=== PATIENT | female | born 1960 | race Caucasian/White ===

== ENCOUNTER 2018-10-02 12:14 | Inpatient (IN) ==
[2018-10-02] MEDS ORDERED: OPTIRAY 320 125ml IV PRN (12:25)
[2018-10-02] MEDS ORDERED: CLOPIDOGREL BISULFATE 300 MG TAB ONE (12:42)
[2018-10-02 12:49] LABS: Hematocrit (blood only) 42.3 % (37-47); Mean Corpuscular Hgb Conc 35.5 g/dL (32-36); Mean Corpuscular Volume 86.5 fL (80-100); Mean Platelet Volume 12.5 fL (7.4-10.4); Platelet Count 200 K/uL (130-400); RDW Coefficient of Variation 12.5 % (11.5-14.5); Red Blood Count 4.89 M/uL (4.2-5.4); White Blood Count 9.67 K/uL (4.8-10.8)
--- NOTE | 2018-10-02 12:49 | CT Scan Report ---
HEAD & NECK CTA HISTORY: Stroke symptoms. TECHNIQUE: Multiaxial CT images of the head were performed following the intravenous administration o f contrast to evaluate the major cerebral vessels. Multiaxial CT images of the neck were also perform ed following the intravenous administration of contrast to evaluate the major cervical vessels. Maxim um intensity projection images were also obtained. A dose lowering technique was utilized adhering to the principles of ALARA. COMPARISON: Head CT 10/02/2018. FINDINGS: The distal vertebral arteries, basilar artery, and intracranial internal carotid arteries show no significant stenosis or occlusion. Mild calcified plaque within the bilateral carotid siphons. Mild to moderate narrowing within the proximal superior division of the right MCA without occlusion or ane urysm. The bilateral ACAs, left MCA, and left BALLOON SANDER appear patent. Focal area of high-grade stenosis ve rsus occlusion within the proximal right BALLOON SANDER best seen on axial image 112. There is diminished perfus ion within the distal right BALLOON SANDER. The major dural venous sinuses appear patent. The aortic arch and proximal great vessels are widely patent. There is no significant stenosis, occ lusion, or dissection identified within the bilateral common carotid, internal carotid, or vertebral arteries. A 2 mm subpleural nodule in the left lung apex on image 50. This is likely benign. Minimal calcified plaque within the bilateral carotid bifurcations. IMPRESSION: 1. Mild to moderate narrowing within the proximal superior division of the right MCA without occlusio n. 2. Focal area of high-grade stenosis versus occlusion within the proximal right BALLOON SANDER. Follow-up brain MRI recommended to exclude the possibility of a right BALLOON SANDER territory infarct. 3. No significant stenosis, occlusion, or dissection identified within the carotid or vertebral arter ies. Electronically signed by: Hernan Sommers M.D. 10/02/2018 12:48 PM
--- NOTE | 2018-10-02 12:49 | CT Scan Report ---
HEAD & NECK CTA HISTORY: Stroke symptoms. TECHNIQUE: Multiaxial CT images of the head were performed following the intravenous administration o f contrast to evaluate the major cerebral vessels. Multiaxial CT images of the neck were also perform ed following the intravenous administration of contrast to evaluate the major cervical vessels. Maxim um intensity projection images were also obtained. A dose lowering technique was utilized adhering to the principles of ALARA. COMPARISON: Head CT 10/02/2018. FINDINGS: The distal vertebral arteries, basilar artery, and intracranial internal carotid arteries show no significant stenosis or occlusion. Mild calcified plaque within the bilateral carotid siphons. Mild to moderate narrowing within the proximal superior division of the right MCA without occlusion or ane urysm. The bilateral ACAs, left MCA, and left ELECTRIC SPOT WELDER appear patent. Focal area of high-grade stenosis ve rsus occlusion within the proximal right ELECTRIC SPOT WELDER best seen on axial image 112. There is diminished perfus ion within the distal right ELECTRIC SPOT WELDER. The major dural venous sinuses appear patent. The aortic arch and proximal great vessels are widely patent. There is no significant stenosis, occ lusion, or dissection identified within the bilateral common carotid, internal carotid, or vertebral arteries. A 2 mm subpleural nodule in the left lung apex on image 50. This is likely benign. Minimal calcified plaque within the bilateral carotid bifurcations. IMPRESSION: 1. Mild to moderate narrowing within the proximal superior division of the right MCA without occlusio n. 2. Focal area of high-grade stenosis versus occlusion within the proximal right ELECTRIC SPOT WELDER. Follow-up brain MRI recommended to exclude the possibility of a right ELECTRIC SPOT WELDER territory infarct. 3. No significant stenosis, occlusion, or dissection identified within the carotid or vertebral arter ies. Electronically signed by: Hernan Sommers M.D. 10/02/2018 12:48 PM
[2018-10-02 12:57] LABS: Appearance Urine Clear (Clear); Bacteria Urine Automated Negative (Negative); Bilirubin Urine Negative (Negative); Blood Urine Trace (Negative); Cast Urine Automated 0 /lpf (0-5); Color Urine Yellow; Glucose Urine UA 3+ (Negative); Ketones Urine 1+ (Negative); Leukocyte Esterase Urine Negative (Negative); Nitrite Urine Negative (Negative); Protein Urine Negative (Negative); RBC Urine Automated 0-4 /hpf (0-4); Specific Gravity Urine 1.031 (1.000-1.030); Urobilinogen Urine Negative (Negative); pH Urine 6.5 (4.5-7.5)
[2018-10-02 12:58] LABS: Estimated Average Glucose 341 mg/dl; Hemoglobin A1C 13.5 % (4.5-5.6)
[2018-10-02] MEDS ORDERED: SODIUM CHLORIDE 0.9% 1000ML 1,000 ML IV ONE ×2 (12:59→13:04)
[2018-10-02 13:00] LABS: Partial Thromboplastin Ratio 0.8; Partial Thromboplastin Time 22.5 Seconds (21.0-31.0); Prothrombin Time 9.8 Seconds (9.0-12.0)
--- NOTE | 2018-10-02 13:04 | CT Scan Report ---
CT head/brain wo con CLINICAL HISTORY: Stroke Symptoms COMPARISON STUDY: None TECHNIQUE: Axial CT of the brain is performed from the vertex to the skull base. IV contrast was not administered for this examination. A dose lowering technique was utilized adhering to the principles of ALARA. CT DOSE: FINDINGS: No intra or extra-axial mass lesions are visualized. There is no CT evidence of acute cortical infarc tion. There is no evidence of midline shift. There is no acute hemorrhage. No calvarial fractures ar e visualized. There are patchy white matter hypodensities likely on a small vessel basis. There is no evidence of pathologic ventricular dilatation. There is no evidence of acute sinusitis IMPRESSION: No acute intracranial findings Electronically signed by: Barney Moseley M.D. 10/02/2018 12:28 PM
[2018-10-02 13:15] LABS: iSTAT Blood Urea Nitrogen 35 mg/dl (7-18); iSTAT Carbon Dioxide 32 mEq/l (24-31); iSTAT Chloride 88 mEq/L (101-112); iSTAT Creatinine 0.9 mg/dl (0.6-1.3); iSTAT Glucose > 700 mg/dl (70-99); iSTAT Hematocrit 43 % (37-47); iSTAT Hemoglobin 14.6 g/dl (12.0-16.0); iSTAT Ionized Calcium 1.14 mmol/l (1.12-1.32); iSTAT Potassium 4.2 mEq/L (3.3-5.0); iSTAT Sodium 129 mEq/L (135-144)
[2018-10-02 13:15] LABS: Albumin Level 3.5 gm/dl (3.4-5.0); BUN Creatinine Ratio 22.7 (10-20); Bilirubin,Total 0.5 mg/dl (0.2-1); Calcium 9.7 mg/dl (8.5-10.1); Creatinine Clr Calc Pharmacy 46.8 ml/min; Est GFR (African American) 51.3; Est GFR (Non-African American) 44.3; Globulin 3.6 gm/dl (2.5-4.0); Magnesium 2.6 mg/dl (1.8-2.4); Potassium 4.1 mmol/L (3.5-5.1); Total Protein 7.1 gm/dl (6.4-8.2)
--- NOTE | 2018-10-02 13:30 | XRay Report ---
XR chest 1V portable CLINICAL HISTORY: 57 years-old Female presenting with cough, stroke symptoms. TECHNIQUE: Portable semiupright AP view of the chest was obtained. COMPARISON: None. FINDINGS: Cardiomediastinal silhouette normal. Mildly low lung volumes. No focal opacity. No large effusion or pneumothorax. Osseous structures normal. Cholecystectomy clips noted. IMPRESSION: 1. No acute cardiopulmonary disease. Electronically signed by: Walter Gonzales M.D. 10/02/2018 1:29 PM
[2018-10-02] MEDS ORDERED: SODIUM CHLORIDE 0.45 % 1,000 ML IV SCH (13:45)
[2018-10-02] MEDS ORDERED: INSULIN REGULAR 250 UNITS in SODIUM CHLORIDE 0.9% 247.5 ML IV SCH ×3 (13:45→18:30)
[2018-10-02] MEDS ORDERED: NovoLIN-R INSULIN PER UNIT CHARGE ONE (13:49)
[2018-10-02] MEDS ORDERED: AZITHROMYCIN 500 MG in DEXTROSE 5% 250 ML IV ONE (14:09)
[2018-10-02] MEDS ORDERED: cefTRIAXone SODIUM 1,000 MG in DEXTROSE 5% 50 ML IV STA (14:09)
[2018-10-02] MEDS ORDERED: DEXTROSE 50% 50 ML SYRINGE IV PRN ×2 (14:30→19:45)
[2018-10-02] MEDS ORDERED: CARBOHYDRATES FOR HYPOGLYCEMIA PO PRN ×2 (14:30→19:45)
[2018-10-02] MEDS ORDERED: GLUCOSE 40% GEL 15 GM TUBE PO PRN ×2 (14:30→19:45)
[2018-10-02] MEDS ORDERED: GLUCOSE 10 TABS/TUBE PO PRN ×2 (14:30→19:45)
[2018-10-02] MEDS ORDERED: GLUCAGON FOR INJ 1 MG VIAL IM PRN ×2 (14:30→19:45)
[2018-10-02] MEDS ORDERED: cefTRIAXone SODIUM 1000MG/50ML D5W ONE (14:34)
--- NOTE | 2018-10-02 15:37 | Emergency Department Note ---
Entered by Alisa Evans acting as a scribe for Danie Kohli DO History of Present Illness General Chief complaint: Stroke/CVA Symptoms Time Seen by Provider: 10/02/18 12:13 Source: patient and EMS Mode of arrival: EMS Limitations: no limitations History of Present Illness Provider complaint: stroke-like symptoms Onset (ago): hour(s) 3 Location: head Pain Consistency: + other (waxing and waning) Quality: + other (stroke-like) Associated symptoms: + denies other symptoms (numbness, vision issues), + seizure, + weakness and + other (slurred speech) The patient is a 57 year old female with a past medical history of hypertension who presents to the Emergency Room via EMS for an evaluation of waxing and waning stroke-like symptoms that began around 0930 today. EMS notes via medic command call that the patient has been experiencing left-sided weakness which resolves on its own but later returns. Per EMS, the patient works at a gas station and was acting baseline until 0930 when her coworkers noticed that the patient was acting drunk-like. EMS also reports that the patient did have an episode of seizure-like activity where she looked to the left and was twitching. EMS states that this episode lasted about 4 minutes. EMS also notes that she was stuttering and that she did have an episode of hypoxia. They also report that the patients blood sugar level was elevated en route but that she has not history of diabetes. EMS states that she is currently being treated with a Z-Mikey and prednisone for a URI. The patient notes that her symptoms onset shortly after taking these. She explains that she was feeling dizzy and had a slurred speech and reports that is all she remembers. She denies any similar episodes in the past. She denies any vision issues or numbness. She denies any tobacco use. The patients coworker reports that the patient did seem somewhat confused yesterday. Home Medications Home Medications Medication Instructions Recorded Confirmed Type allopurinol 100 mg PO DAILY 10/02/18 10/02/18 History azithromycin [Zithromax Z-Mikey] 0 mg PO DAILY 10/02/18 10/02/18 History furosemide 20 mg PO Q OTHER DAY 10/02/18 10/02/18 History iron 1 tab PO DAILY 10/02/18 10/02/18 History levothyroxine 50 mcg PO QAM 10/02/18 10/02/18 History magnesium 500 mg PO DAILY 10/02/18 10/02/18 History metoprolol tartrate 100 mg PO DAILY 10/02/18 10/02/18 History potassium chloride [Klor-Con M20] 4 tabs PO DAILY 10/02/18 10/02/18 History prednisone 0 mg PO .TAPER DOSE 10/02/18 10/02/18 History valsartan-hydrochlorothiazide 1 tab PO DAILY 10/02/18 10/02/18 History Allergies Allergy/AdvReac Type Severity Reaction Status Date / Time aspirin AdvReac Unknown Unverified 10/02/18 14:13 Past Med/Surg History Medical History Hypertension (Chronic) Social History Preferred Language: Faroese marital status: Current Living Situation: Spouse current occupational status: employed Feels Safe at Home: Yes Smoking Status: Never smoker Review of Systems See HPI for pertinent positives & negatives. and A total of 10 systems reviewed and were otherwise negative Physical Exam Vital Signs Vital Signs - 24 hr 10/02/18 12:14 10/02/18 12:46 10/02/18 12:51 Temperature 36.6 C Temperature Source Oral Sepsis Recent Fever Within 48 Hours No Sepsis New/Unexplained Change in Mental Status No Sepsis Action Taken by Nursing No Action Required Pulse Rate 101 H 108 H 101 H Pulse Rate [Apical] Pulse Rate from SpO2 Sensor 109 H 101 H Pulse Rhythm [Apical] Respiratory Rate 16 20 15 Respiratory Effort / Characteristics Respiratory Depth Normal Respiratory Pattern Blood Pressure 195/104 H 183/140 H Blood Pressure [Left Arm] Blood Pressure Mean 134 154 Blood Pressure Mean [Left Arm] Blood Pressure Position Sitting Blood Pressure Position [Left Arm] Pulse Oximetry 97 99 98 Oxygen Delivery Method Nasal Cannula Oxygen Flow Rate 2 10/02/18 13:00 10/02/18 13:01 10/02/18 13:09 Temperature Temperature Source Sepsis Recent Fever Within 48 Hours Sepsis New/Unexplained Change in Mental Status Sepsis Action Taken by Nursing Pulse Rate 104 H 102 H Pulse Rate [Apical] Pulse Rate from SpO2 Sensor 101 H 101 H Pulse Rhythm [Apical] Respiratory Rate 15 17 Respiratory Effort / Characteristics Respiratory Depth Respiratory Pattern Blood Pressure 185/128 H Blood Pressure [Left Arm] Blood Pressure Mean 147 Blood Pressure Mean [Left Arm] Blood Pressure Position Blood Pressure Position [Left Arm] Pulse Oximetry 96 100 88 L Oxygen Delivery Method Nasal Cannula Oxygen Flow Rate 2 10/02/18 13:10 10/02/18 13:17 10/02/18 13:20 Temperature Temperature Source Sepsis Recent Fever Within 48 Hours Sepsis New/Unexplained Change in Mental Status Sepsis Action Taken by Nursing Pulse Rate 104 H 93 H 92 H Pulse Rate [Apical] Pulse Rate from SpO2 Sensor 106 H 92 H 82 Pulse Rhythm [Apical] Respiratory Rate 27 H 16 17 Respiratory Effort / Characteristics Respiratory Depth Respiratory Pattern Blood Pressure 186/100 H Blood Pressure [Left Arm] Blood Pressure Mean 128 Blood Pressure Mean [Left Arm] Blood Pressure Position Blood Pressure Position [Left Arm] Pulse Oximetry 86 L 97 97 Oxygen Delivery Method Oxygen Flow Rate 10/02/18 13:30 10/02/18 13:47 10/02/18 14:00 Temperature Temperature Source Sepsis Recent Fever Within 48 Hours Sepsis New/Unexplained Change in Mental Status Sepsis Action Taken by Nursing Pulse Rate Pulse Rate [Apical] 69 92 H Pulse Rate from SpO2 Sensor Pulse Rhythm [Apical] Regular Regular Respiratory Rate 17 17 Respiratory Effort / Characteristics Non-Labored Non-Labored Respiratory Depth Normal Normal Respiratory Pattern Regular Blood Pressure Blood Pressure [Left Arm] 160/83 H 160/107 H Blood Pressure Mean Blood Pressure Mean [Left Arm] 108 124 Blood Pressure Position Blood Pressure Position [Left Arm] Lying Lying Pulse Oximetry 95 100 100 Oxygen Delivery Method Nasal Cannula Nasal Cannula Nasal Cannula Oxygen Flow Rate 2 2 2 10/02/18 14:15 Temperature Temperature Source Sepsis Recent Fever Within 48 Hours Sepsis New/Unexplained Change in Mental Status Sepsis Action Taken by Nursing Pulse Rate Pulse Rate [Apical] 90 Pulse Rate from SpO2 Sensor Pulse Rhythm [Apical] Respiratory Rate 13 Respiratory Effort / Characteristics Respiratory Depth Normal Respiratory Pattern Blood Pressure Blood Pressure [Left Arm] 164/83 H Blood Pressure Mean Blood Pressure Mean [Left Arm] 110 Blood Pressure Position Blood Pressure Position [Left Arm] Sitting Pulse Oximetry 99 Oxygen Delivery Method Nasal Cannula Oxygen Flow Rate 2 VITAL SIGNS: were reviewed as above. GENERAL:Non-toxic in appearance. SKIN: Warm dry and pink. HEAD: Normocephalic and atraumatic. OROPHARYNX: Is clear and moist NECK: Supple without lymphadenopathy or meningismus. LUNGS: clear. HEART: Regular rate and rhythm. ABDOMEN: Soft and nontender. EXTREMITIES: Warm and well perfused. NEUROLOGICALLY: Awake alert and oriented without focal deficit. Cranial nerves 2-12 are intact. There is no pronator drift. Cerebellar testing is within normal limits. There is no nystagmus. There is no facial droop. Speech is clear. Vision is grossly normal. MUSCULOSKELETAL: Good muscle tone. No evidence of trauma. Course 1228: Past medical records reviewed. The patient was evaluated in room B1. A complete history and physical examination was performed. 1229: I discussed the patient's case with Dr. Sanchez Hobbs [facility] Neurology. He will evaluate the patient via TeleStroke. 1237: Dr. Bradford [facility] Neurology is evaluating the patient via TeleStroke. 1312: I reviewed the patient's case with Dr. Sanchez Hobbs [facility] Neurology. He recommends giving the patient 1 gram of Keppra IV, 1 L of fluids and Plavix 300 PO. 1425: I reviewed the patient's case with Dr. Yaw Hobbs [facility] Hospitalist. He will evaluate the patient for further management. 1433: I updated the patient and she is agreeable with the treatment plan. Administered Medications Ioversol (Optiray 320 125ml) 121 ml IV ONCE PRN PRN Reason: Interaction Checking Stop: 10/06/18 12:24 Last Admin: 10/02/18 12:25 Dose: 121 ml Documented by: [id number] Discontinued Medications Ceftriaxone Sodium (Rocephin) Confirm Administered Dose 1,000 mg .ROUTE .STK-MED ONE Stop: 10/02/18 14:35 Last Admin: 10/02/18 14:37 Dose: 1,000 mg Documented by: [id number] Clopidogrel Bisulfate (Plavix) Confirm Administered Dose 300 mg .ROUTE .STK-MED ONE Stop: 10/02/18 12:43 Last Admin: 10/02/18 12:45 Dose: 300 mg Documented by: [id number] Sodium Chloride (Nss 1000ml) 1,000 mls @ 999 mls/hr IV .Q1H1M ONE Stop: 10/02/18 13:59 Last Admin: 10/02/18 13:11 Dose: 999 mls/hr Documented by: [id number] Sodium Chloride (Nss 1000ml) 1,000 mls @ 999 mls/hr IV .Q1H1M ONE Stop: 10/02/18 14:04 Last Admin: 10/02/18 13:46 Dose: 999 mls/hr Documented by: [id number] Levetiracetam 1,000 mg/ (Dextrose) 110 mls @ 440 mls/hr IV NOW STA Stop: 10/02/18 13:27 Last Infusion: 10/02/18 13:38 Dose: 0 mls/hr Documented by: [id number] Admin: 10/02/18 13:23 Dose: 440 mls/hr Documented by: [id number] Insulin Human Regular (Novolin R U-100 Per Unit) Confirm Administered Dose 20 units .ROUTE .STK-MED ONE Stop: 10/02/18 13:50 Last Admin: 10/02/18 13:51 Dose: 20 units Documented by: [id number] Cosigned by: [id number] Medical Decision Making Differential Diagnosis Differential Diagnosis includes but is not limited to ischemic Stroke, hem orrhagic stroke, bells palsy, mass, neoplasm, migraine headache, seizure, subarachnoid hemorrhage, TIA, and transient global amnesia. Medical Records Attestation: I reviewed the patient's medical records. Home Medications Current Medication List: was personally reviewed by me Laboratory Data Attestation: I reviewed the patient's lab results. Result diagrams: 10/02/18 12:28 10/02/18 12:28 Lab Results 10/02/18 10/02/18 10/02/18 Range/Units 12:28 12:28 12:28 WBC 9.67 (4.8-10.8) K/uL RBC 4.89 (4.2-5.4) M/uL Hgb 15.0 (12.0-16.0) g/dL POC Hgb (12.0-16.0) g/dl Hct 42.3 (37-47) % POC Hct (37-47) % MCV 86.5 (80-100) fL MCH 30.7 (25-34) pg MCHC 35.5 (32-36) g/dL RDW Std Deviation 40.0 (36.4-46.3) fL RDW Coeff of Peter 12.5 (11.5-14.5) % Plt Count 200 (130-400) K/uL MPV 12.5 H (7.4-10.4) fL PT 9.8 (9.0-12.0) Seconds INR 1.0 (0.9-1.1) APTT 22.5 (21.0-31.0) Seconds PTT Ratio 0.8 POC Sodium (135-144) mEq/L Sodium 128 L (136-145) mmol/L POC Potassium (3.3-5.0) mEq/L Potassium 4.1 (3.5-5.1) mmol/L POC Chloride (101-112) mEq/L Chloride 90 L (98-107) mmol/L Carbon Dioxide 29 (21-32) mmol/L POC Total CO2 (24-31) mEq/l Anion Gap 9.0 (3-11) POC Anion Gap (16-25) mmol/L POC BUN (7-18) mg/dl BUN 30 H (7-18) mg/dl Creatinine 1.33 H (0.6-1.2) mg/dl POC Creatinine (0.6-1.3) mg/dl Est Cr Clr Drug Dosing 46.8 ml/min Est GFR ( Amer) 51.3 Est GFR (Non-Af Amer) 44.3 BUN/Creatinine Ratio 22.7 H (10-20) Glucose 841 H* (70-99) mg/dl POC Glucose (70-99) POC Glucose (other) (70-99) mg/dl Estimat Average Glucose mg/dl Hemoglobin A1c (4.5-5.6) % Calcium 9.7 (8.5-10.1) mg/dl POC Ioniz Calcium Art (1.12-1.32) mmol/l Magnesium 2.6 H (1.8-2.4) mg/dl Total Bilirubin 0.5 (0.2-1) mg/dl AST 20 (15-37) U/L ALT 40 (12-78) U/L Alkaline Phosphatase 128 H (45-117) U/L Total Protein 7.1 (6.4-8.2) gm/dl Albumin 3.5 (3.4-5.0) gm/dl Globulin 3.6 (2.5-4.0) gm/dl Albumin/Globulin Ratio 1.0 (0.9-2) Urine Color Urine Appearance (Clear) Urine pH (4.5-7.5) Ur Specific [place] (1.000-1.030) Urine Protein (Negative) Urine Glucose (UA) (Negative) Urine Ketones (Negative) Urine Blood (Negative) Urine Nitrite (Negative) Urine Bilirubin (Negative) Urine Urobilinogen (Negative) Ur Leukocyte Esterase (Negative) Urine WBC (Auto) (0-5) /hpf Urine RBC (Auto) (0-4) /hpf U Hyaline Cast (Auto) (0-5) /lpf U Epithel Cells (Auto) (0-5) /lpf Urine Bacteria (Auto) (Negative) 10/02/18 10/02/18 10/02/18 Range/Units 12:30 12:37 12:45 WBC (4.8-10.8) K/uL RBC (4.2-5.4) M/uL Hgb (12.0-16.0) g/dL POC Hgb (12.0-16.0) g/dl Hct (37-47) % POC Hct (37-47) % MCV (80-100) fL MCH (25-34) pg MCHC (32-36) g/dL RDW Std Deviation (36.4-46.3) fL RDW Coeff of Peter (11.5-14.5) % Plt Count (130-400) K/uL MPV (7.4-10.4) fL PT (9.0-12.0) Seconds INR (0.9-1.1) APTT (21.0-31.0) Seconds PTT Ratio POC Sodium (135-144) mEq/L Sodium (136-145) mmol/L POC Potassium (3.3-5.0) mEq/L Potassium (3.5-5.1) mmol/L POC Chloride (101-112) mEq/L Chloride (98-107) mmol/L Carbon Dioxide (21-32) mmol/L POC Total CO2 (24-31) mEq/l Anion Gap (3-11) POC Anion Gap (16-25) mmol/L POC BUN (7-18) mg/dl BUN (7-18) mg/dl Creatinine (0.6-1.2) mg/dl POC Creatinine (0.6-1.3) mg/dl Est Cr Clr Drug Dosing ml/min Est GFR ( Amer) Est GFR (Non-Af Amer) BUN/Creatinine Ratio (10-20) Glucose (70-99) mg/dl POC Glucose > 600 H* (70-99) POC Glucose (other) (70-99) mg/dl Estimat Average Glucose 341 mg/dl Hemoglobin A1c 13.5 H (4.5-5.6) % Calcium (8.5-10.1) mg/dl POC Ioniz Calcium Art (1.12-1.32) mmol/l Magnesium (1.8-2.4) mg/dl Total Bilirubin (0.2-1) mg/dl AST (15-37) U/L ALT (12-78) U/L Alkaline Phosphatase (45-117) U/L Total Protein (6.4-8.2) gm/dl Albumin (3.4-5.0) gm/dl Globulin (2.5-4.0) gm/dl Albumin/Globulin Ratio (0.9-2) Urine Color Yellow Urine Appearance Clear (Clear) Urine pH 6.5 (4.5-7.5) Ur Specific [place] 1.031 H (1.000-1.030) Urine Protein Negative (Negative) Urine Glucose (UA) 3+ H (Negative) Urine Ketones 1+ H (Negative) Urine Blood Trace H (Negative) Urine Nitrite Negative (Negative) Urine Bilirubin Negative (Negative) Urine Urobilinogen Negative (Negative) Ur Leukocyte Esterase Negative (Negative) Urine WBC (Auto) 1-5 (0-5) /hpf Urine RBC (Auto) 0-4 (0-4) /hpf U Hyaline Cast (Auto) 0 (0-5) /lpf U Epithel Cells (Auto) 10-20 H (0-5) /lpf Urine Bacteria (Auto) Negative (Negative) 10/02/18 Range/Units 12:59 WBC (4.8-10.8) K/uL RBC (4.2-5.4) M/uL Hgb (12.0-16.0) g/dL POC Hgb 14.6 (12.0-16.0) g/dl Hct (37-47) % POC Hct 43 (37-47) % MCV (80-100) fL MCH (25-34) pg MCHC (32-36) g/dL RDW Std Deviation (36.4-46.3) fL RDW Coeff of Peter (11.5-14.5) % Plt Count (130-400) K/uL MPV (7.4-10.4) fL PT (9.0-12.0) Seconds INR (0.9-1.1) APTT (21.0-31.0) Seconds PTT Ratio POC Sodium 129 L (135-144) mEq/L Sodium (136-145) mmol/L POC Potassium 4.2 (3.3-5.0) mEq/L Potassium (3.5-5.1) mmol/L POC Chloride 88 L (101-112) mEq/L Chloride (98-107) mmol/L Carbon Dioxide (21-32) mmol/L POC Total CO2 32 H (24-31) mEq/l Anion Gap (3-11) POC Anion Gap 15.0 L (16-25) mmol/L POC BUN 35 H (7-18) mg/dl BUN (7-18) mg/dl Creatinine (0.6-1.2) mg/dl POC Creatinine 0.9 (0.6-1.3) mg/dl Est Cr Clr Drug Dosing ml/min Est GFR ( Amer) Est GFR (Non-Af Amer) BUN/Creatinine Ratio (10-20) Glucose (70-99) mg/dl POC Glucose (70-99) POC Glucose (other) > 700 H* (70-99) mg/dl Estimat Average Glucose mg/dl Hemoglobin A1c (4.5-5.6) % Calcium (8.5-10.1) mg/dl POC Ioniz Calcium Art 1.14 (1.12-1.32) mmol/l Magnesium (1.8-2.4) mg/dl Total Bilirubin (0.2-1) mg/dl AST (15-37) U/L ALT (12-78) U/L Alkaline Phosphatase (45-117) U/L Total Protein (6.4-8.2) gm/dl Albumin (3.4-5.0) gm/dl Globulin (2.5-4.0) gm/dl Albumin/Globulin Ratio (0.9-2) Urine Color Urine Appearance (Clear) Urine pH (4.5-7.5) Ur Specific [place] (1.000-1.030) Urine Protein (Negative) Urine Glucose (UA) (Negative) Urine Ketones (Negative) Urine Blood (Negative) Urine Nitrite (Negative) Urine Bilirubin (Negative) Urine Urobilinogen (Negative) Ur Leukocyte Esterase (Negative) Urine WBC (Auto) (0-5) /hpf Urine RBC (Auto) (0-4) /hpf U Hyaline Cast (Auto) (0-5) /lpf U Epithel Cells (Auto) (0-5) /lpf Urine Bacteria (Auto) (Negative) Imaging Data Radiologist's Impression: Radiology results as stated below per my review and the radiologist's interpretation: HEAD & NECK CTA HISTORY: Stroke symptoms. TECHNIQUE: Multiaxial CT images of the head were performed following the intravenous administration of contrast to evaluate the major cerebral vessels. Multiaxial CT images of the neck were also performed following the intravenous administration of contrast to evaluate the major cervical vessels. Maximum intensity projection images were also obtained. A dose lowering technique was utilized adhering to the principles of ALARA. COMPARISON: Head CT 10/02/2018. FINDINGS: The distal vertebral arteries, basilar artery, and intracranial internal carotid arteries show no significant stenosis or occlusion. Mild calcified plaque within the bilateral carotid siphons. Mild to moderate narrowing within the proximal superior division of the right MCA without occlusion or aneurysm. The bilateral ACAs, left MCA, and left [employer] MANAGEMENT EXECUTIVE appear patent. Focal area of high- grade stenosis versus occlusion within the proximal right [employer] MANAGEMENT EXECUTIVE best seen on axial image 112. There is diminished perfusion within the distal right [employer] MANAGEMENT EXECUTIVE. The major dural venous sinuses appear patent. The aortic arch and proximal great vessels are widely patent. There is no significant stenosis, occlusion, or dissection identified within the bilateral common carotid, internal carotid, or vertebral arteries. A 2 mm subpleural nodule in the left lung apex on image 50. This is likely benign. Minimal calcified plaque within the bilateral carotid bifurcations. IMPRESSION: 1. Mild to moderate narrowing within the proximal superior division of the right MCA without occlusion. 2. Focal area of high-grade stenosis versus occlusion within the proximal right [employer]IES MANAGEMENT EXECUTIVE. Follow-up brain MRI recommended to exclude the possibility of a right FACILITIES MANAGEMENT EXECUTIVE territory infarct. 3. No significant stenosis, occlusion, or dissection identified within the carotid or vertebral arteries. Electronically signed by: Hernan Sommers M.D. 10/02/2018 12:[address] head/brain wo con CLINICAL HISTORY: Stroke Symptoms COMPARISON STUDY: None TECHNIQUE: Axial CT of the brain is performed from the vertex to the skull base. IV contrast was not administered for this examination. A dose lowering technique was utilized adhering to the principles of ALARA. CT DOSE: FINDINGS: No intra or extra-axial mass lesions are visualized. There is no CT evidence of acute cortical infarction. There is no evidence of midline shift. There is no acute hemorrhage. No calvarial fractures are visualized. There are patchy white matter hypodensities likely on a small vessel basis. There is no evidence of pathologic ventricular dilatation. There is no evidence of acute sinusitis IMPRESSION: No acute intracranial findings Electronically signed by: Barney Moseley M.D. 10/02/2018 12:28 PM XR chest 1V portable CLINICAL HISTORY: 57 years-old Female presenting with cough, stroke symptoms. TECHNIQUE: Portable semiupright AP view of the chest was obtained. COMPARISON: None. FINDINGS: Cardiomediastinal silhouette normal. Mildly low lung volumes. No focal opacity. No large effusion or pneumothorax. Osseous structures normal. Cholecystectomy clips noted. IMPRESSION: 1. No acute cardiopulmonary disease. Electronically signed by: Walter Gonzales M.D. 10/02/2018 1:29 PM ECG Data Indication: other (stroke-like symptoms) Rate (beats per minute): 98 Rhythm: normal sinus Findings: no ST elevation and no ectopy Blood Pressure Blood Pressure Findings: Elevated blood pressure Blood Pressure Disposition: further management by hospitalist MDM Narrative The patient presents as above. She was evaluated here by myself and by [facility]ist on line. The patient received the above medications. She will be admitted for the below diagnosis. Impression & Plan CVA (cerebrovascular accident), Hyperglycemia, Acute bronchitis, Seizure Critical Care Time I have personally spent 35 minutes of critical care time in the direct management of this patient. This includes bedside care, interpretation of diagnostic studies, and testing, discussion with consultants, patient, and family members, and other required patient management activities. These 35 minutes is in excess of all separately billable procedures. Critical Care Time: Yes Total Critical Care Time: 35 Discharge Plan Visit Data Chief Complaint: Stroke/CVA Symptoms ED Provider: Danie Kohli Discharge Problem: CVA (cerebrovascular accident), Hyperglycemia, Acute bronchitis, Seizure Patient Disposition: Being Evaluated by Hospitalist Forms Stand Alone Forms: My [facility] Prescriptions Prescriptions: No Action metoprolol tartrate 100 mg Tablet 100 mg PO DAILY RF: 0 valsartan-hydrochlorothiazide 160-12.5 mg Tablet 1 tab PO DAILY RF: 0 allopurinol 100 mg Tablet 100 mg PO DAILY RF: 0 potassium chloride [Klor-Con M20] 20 mEq Tablet,Er Particles/Crystals 4 tabs PO DAILY RF: 0 levothyroxine 50 mcg Tablet 50 mcg PO QAM RF: 0 magnesium 250 mg Tablet 500 mg PO DAILY RF: 0 furosemide 20 mg Tablet 20 mg PO Q OTHER DAY RF: 0 iron 1 tab PO DAILY RF: 0 azithromycin [Zithromax Z-Mikey] 250 mg Tablet PO DAILY RF: 0 prednisone 20 mg Tablet PO .TAPER DOSE RF: 0 Referrals Referrals: Luz Maria Mabry MD [Primary Care Provider] - Discharge Problem: CVA (cerebrovascular accident) Qualifiers: CVA mechanism: unspecified Qualified Code(s): I63.9 - Cerebral infarction, unspecified Acute bronchitis Qualifiers: Bronchitis organism: unspecified organism Qualified Code(s): J20.9 - Acute bronchitis, unspecified The scribe's documentation has been prepared under my direction and personally reviewed by me in its entirety. I confirm that the note above accurately refle cts all work, treatment, procedures, and medical decision making performed by me.
--- NOTE | 2018-10-02 15:39 | History & Physical Report ---
Date of Service October 02, 2018 Assessment & Plan (1) Uncontrolled type 2 diabetes mellitus: Glucose greater than 800 on admission. She is receiving intravenous fluids and insulin infusion. Serial lab studies ordered. Pseudohyponatremia should resolve with correction of hyperglycemia. Hemoglobin A1c is greater than 13. She will need diabetic instruction later on during this hospital stay Present on Admission?: Yes (2) Seizure: Some question of focal motor seizure. She has been loaded with Keppra and will start oral Keppra tomorrow. Neurological consultation is requested Present on Admission?: Yes (3) Acute bronchitis: Continue intravenous Rocephin and nebulizer treatments. Obtain sputum culture if sputum is produced Present on Admission?: Yes (4) CVA (cerebrovascular accident): Tele-neurology has evaluated the patient. Brain MRI scan is pending. She has been loaded with Plavix. Stroke protocol ordered Present on Admission?: Yes (5) Hypertension: Diuretics are on hold. Continue valsartan and metoprolol (6) DVT prophylaxis: Lovenox subcu History of Present Illness Chief Complaint: Nonproductive cough, altered mental status Primary Care Provider: Luz Maria Mabry MD 57-year-old female recently treated with azithromycin and prednisone for a bronchitis episode. She had altered mental status today at work and was sent to the ED for evaluation. She was found to have glucose greater than 800 but no overt DKA. She has pseudohyponatremia as expected. Tele-neurology evaluated the patient and she was given Plavix. She was also loaded with intravenous Keppra for possible new onset seizure that may have been focal. Head CT scan is unremarkable. Head CTA however reveals right posterior cerebral artery stenosis or occlusion. Brain MRI is pending. Neurology has been consulted. She is now on an insulin infusion. She has received Rocephin also in the ED. Diuretics have been discontinued. She was loaded with Plavix. She is admitted for further evaluation and treatment Allergies Allergy/AdvReac Type Severity Reaction Status Date / Time aspirin AdvReac Unknown Unverified 10/02/18 14:13 Home Medications Home Medications Medication Instructions Recorded Confirmed Type allopurinol 100 mg PO DAILY 10/02/18 10/02/18 History azithromycin [Zithromax Z-Mikey] 0 mg PO DAILY 10/02/18 10/02/18 History furosemide 20 mg PO Q OTHER DAY 10/02/18 10/02/18 History iron 1 tab PO DAILY 10/02/18 10/02/18 History levothyroxine 50 mcg PO QAM 10/02/18 10/02/18 History magnesium 500 mg PO DAILY 10/02/18 10/02/18 History metoprolol tartrate 100 mg PO DAILY 10/02/18 10/02/18 History potassium chloride [Klor-Con M20] 4 tabs PO DAILY 10/02/18 10/02/18 History prednisone 0 mg PO .TAPER DOSE 10/02/18 10/02/18 History valsartan-hydrochlorothiazide 1 tab PO DAILY 10/02/18 10/02/18 History Past Med/Surg History Medical History Hypertension (Chronic) Social History Preferred Language: Slovak marital status: Current Living Situation: Spouse current occupational status: employed Feels Safe at Home: Yes Smoking Status: Never smoker Review of Systems Review of Systems: All systems reviewed & are unremarkable except as noted in HPI & below Constitutional: + fatigue and + weakness; no fever Ear, Nose, Mouth, Throat: + dry mouth Respiratory: + cough; no dyspnea and no hemoptysis Physical Exam Constitutional: + obese Slightly lethargic but able to speak and appears to be oriented Eyes: PERRL, conjunctivae normal, anicteric sclerae ENMT: external ear and nose normal, oropharynx normal Mouth: + oral mucosal abnormality Dry mouth Neck: trachea midline, no thyromegaly Respiratory: normal respiratory effort; no respiratory distress, no labored breathing and no retractions Midline rhonchi. Cardiovascular: RRR, no murmur, no edema Gastrointestinal (Abdomen): normal bowel sounds, soft, nontender, no hepatosplenomegaly Musculoskeletal: no cyanosis or clubbing, extremities motor strength 5/5 Skin: no rashes, warm and dry Neurologic: CN's II-XI intact bilaterally and moves all extremities; no focal motor deficits Slightly lethargic but otherwise intact Results & Data Vital Signs (Past 12 Hours) Vital Signs Temp Pulse Pulse Resp BP BP Pulse Ox 10/02/18 14:45 90 17 127/84 99 10/02/18 14:30 76 16 154/88 H 99 10/02/18 14:15 90 13 164/83 H 99 10/02/18 14:00 92 H 17 160/107 H 100 10/02/18 13:47 100 10/02/18 13:30 69 17 160/83 H 95 10/02/18 13:20 92 H 17 97 10/02/18 13:17 93 H 16 186/100 H 97 10/02/18 13:10 104 H 27 H 86 L 10/02/18 13:09 88 L 10/02/18 13:01 102 H 17 185/128 H 100 10/02/18 13:00 104 H 15 96 10/02/18 12:51 101 H 15 98 10/02/18 12:46 108 H 20 183/140 H 99 10/02/18 12:14 36.6 C 101 H 16 195/104 H 97 Laboratory Results 10/02/18 12:28 10/02/18 12:28 (1) Acute bronchitis Bronchitis organism: unspecified organism Qualified Code(s): J20.9 - Acute bronchitis, unspecified (2) CVA (cerebrovascular accident) CVA mechanism: unspecified Qualified Code(s): I63.9 - Cerebral infarction, unspecified
[2018-10-02 16:51] LABS: BUN Creatinine Ratio 19.7 (10-20); Creatinine Clr Calc Pharmacy 46.9 ml/min; Est GFR (African American) 58.7; Est GFR (Non-African American) 50.6; Magnesium 2.3 mg/dl (1.8-2.4); Phosphorus 2.4 mg/dl (2.5-4.9); Potassium 3.7 mmol/L (3.5-5.1)
[2018-10-02 17:08] LABS: Beta-Hydroxybutyrate 1.48 mg/dl (0.2-2.81)
[2018-10-02] MEDS ORDERED: ACETAMINOPHEN 325 MG TAB PO PRN (17:28)
[2018-10-02] MEDS ORDERED: ALUMINUM/MAGNESIUM SUSP 30 ML UDC PO PRN (17:28)
[2018-10-02] MEDS ORDERED: ONDANSETRON INJ 2 MG/ML 2 ML VIAL IV PRN (17:28)
[2018-10-02] MEDS ORDERED: PHARMACIST DISCHARGE MED REC CONSULT PRN (17:28)
[2018-10-02] MEDS ORDERED: INSULIN ASPART 100 UNITS/ML 3 ML PEN SC SCH ×2 (18:00)
[2018-10-02] MEDS: ENOXAPARIN INJ 40 MG/0.4 ML SYR SQ SCH (18:22)
[2018-10-02] MEDS: INSULIN ASPART 100 UNITS/ML 3 ML PEN SC SCH ×2 (18:36→20:23)
[2018-10-02] MEDS: ALBUT/IPRATROP 3MG/0.5MG NEB 3 ML VIAL NEB SCH ×3 (19:11→22:14)
[2018-10-02] MEDS: NSS + 20MEQ KCL 20 MEQ/1,000 ML BAG IV SCH (19:16)
[2018-10-02] MEDS: POTASSIUM CHLORIDE 20 MEQ TABCR PO SCH (20:24)
[2018-10-02] MEDS ORDERED: INSULIN GLARGINE SOLOSTAR 100 UNITS/ML 3 ML PEN SC ONE ×3 (21:00)
[2018-10-02 21:04] LABS: Calcium 8.5 mg/dl (8.5-10.1); Creatinine Clr Calc Pharmacy 66.5 ml/min; Est GFR (African American) 89.4; Est GFR (Non-African American) 77.2; Phosphorus 1.7 mg/dl (2.5-4.9); Potassium 3.4 mmol/L (3.5-5.1)
[2018-10-02 21:17] LABS: Beta-Hydroxybutyrate 25.92 mg/dl (0.2-2.81)
[2018-10-02] MEDS ORDERED: GADOBUTROL 65ML VIAL IV PRN (22:07)
--- NOTE | 2018-10-02 22:18 | Magnetic Resonance Report ---
MR brain wo/w con CLINICAL HISTORY: Altered mental status, possible CVA COMPARISON STUDY: No previous studies for comparison. TECHNIQUE: Utilizing a 1.5 Mireya magnet and dedicated coil, multiplanar, multiecho imaging of the br ain was performed pre and postcontrast administration. IV administration of 7 mL of Gadavist contras t was uneventful. FINDINGS: Feeding images demonstrate several small foci of increased signal within the periventricula r regions. This suggestive of small embolic infarcts. There is a small linear focus of increased signal on diffusion involving the left central mike. This is also seen on the T2 images suggesting a subacute process. The ventricular system is midline. There is no evidence for abnormal postcontrast enhancement. IMPRESSION: 1. Small punctate infarcts of the right and to a lesser extent left cerebral distributions. 2. Subacute infarct left central mike. 3. Multiplicity of small punctate findings suggest possibility of small embolic foci of acute ischemi c change. 4. No abnormal postcontrast enhancement. The above report was generated using voice recognition software. It may contain grammatical, syntax or spelling errors. Electronically signed by: Bhargav Moya M.D. 10/02/2018 10:17 PM
[2018-10-03 00:29] LABS: BUN Creatinine Ratio 22.8 (10-20); Calcium 8.4 mg/dl (8.5-10.1); Creatinine Clr Calc Pharmacy 63.4 ml/min; Est GFR (African American) 85.1; Est GFR (Non-African American) 73.4; Potassium 3.7 mmol/L (3.5-5.1)
[2018-10-03 00:39] LABS: Phosphorus 1.5 mg/dl (2.5-4.9)
[2018-10-03] MEDS: NSS + 20MEQ KCL 20 MEQ/1,000 ML BAG IV SCH (00:48)
[2018-10-03] MEDS: POT PHOSPHATE MONOBASIC W/ SOD TAB PO SCH ×3 (03:15→13:55)
[2018-10-03 04:37] LABS: Basophils # (auto) 0.01 K/uL (0-0.2); Basophils % (auto) 0.1 %; Hematocrit (blood only) 35.4 % (37-47); Hemoglobin 12.4 g/dL (12.0-16.0); Immature Granulocytes # (auto) 0.03 K/uL (0.00-0.02); Immature Granulocytes % (auto) 0.3 %; Lymphocytes # (auto) 2.44 K/uL (1.2-3.4); Mean Corpuscular Volume 85.5 fL (80-100); Mean Platelet Volume 11.8 fL (7.4-10.4); Monocytes # (auto) 0.63 K/uL (0.11-0.59); Monocytes % (auto) 5.7 %; Neutrophils # (auto) 7.96 K/uL (1.4-6.5); Neutrophils % (auto) 71.9 %; Platelet Count 211 K/uL (130-400); RDW Coefficient of Variation 12.4 % (11.5-14.5); Red Blood Count 4.14 M/uL (4.2-5.4); White Blood Count 11.07 K/uL (4.8-10.8)
[2018-10-03 04:43] LABS: BUN Creatinine Ratio 26.8 (10-20); Calcium 8.2 mg/dl (8.5-10.1); Creatinine Clr Calc Pharmacy 74.5 ml/min; Est GFR (African American) 103.5; Est GFR (Non-African American) 89.3; Magnesium 2.2 mg/dl (1.8-2.4); Phosphorus 1.3 mg/dl (2.5-4.9); Potassium 3.6 mmol/L (3.5-5.1)
[2018-10-03] MEDS ORDERED: GLUCOSE 10 TABS/TUBE PO PRN (04:51)
[2018-10-03] MEDS ORDERED: CARBOHYDRATES FOR HYPOGLYCEMIA PO PRN (04:51)
[2018-10-03] MEDS ORDERED: GLUCAGON FOR INJ 1 MG VIAL SQ PRN (04:51)
[2018-10-03] MEDS ORDERED: GLUCOSE 40% GEL 15 GM TUBE PO PRN (04:51)
[2018-10-03] MEDS ORDERED: DEXTROSE 50% 50 ML SYRINGE IV PRN (04:51)
--- NOTE | 2018-10-03 04:56 | Progress Note ---
Date of Service October 03, 2018 Updates that occurred during [facility]: - Phosphorus level was 1.3. K 3.6. Ordered K-Phos 2 tabs p.o. QID with first dose given around 3 AM. - Her nurse was concerned that the patient's lung sounds were concerning for beginning of fluid overload. Still breathing comfortably though. SpO2 92% on RA. Her IV fluids were running at 175 mL an hour. Most recent lab check was notable for no current anion gap, potassium 3.6, pH of 7.45, and blood sugar of 129. Stopped her IV fluids. Started insulin sliding scale. - Morning labs still pending. Jagdeep Matthews, PGY2 Overnight call Results & Data Vital Signs (Past 12 Hours) Vital Signs Temp Pulse Pulse Resp BP BP Pulse Ox 10/03/18 04:00 36.7 C 76 18 115/71 92 10/02/18 23:25 85 10/02/18 23:10 36.8 C 84 19 105/65 93 10/02/18 19:15 72 16 93 10/02/18 19:13 37.1 C 73 18 124/74 92 10/02/18 17:44 67 10/02/18 17:32 36.7 C 72 18 129/54 L 95 10/02/18 17:10 67 17 121/69 95
[2018-10-03] MEDS: LEVOTHYROXINE SODIUM 50 MCG TABLET PO SCH (05:46)
[2018-10-03 06:05] LABS: Estimated Average Glucose 346 mg/dl; Hemoglobin A1C 13.7 % (4.5-5.6)
[2018-10-03 06:58] LABS: BUN Creatinine Ratio 30.5 (10-20); Creatinine Clr Calc Pharmacy 93.7 ml/min; Est GFR (African American) 115.2; Est GFR (Non-African American) 99.4; Phosphorus 1.9 mg/dl (2.5-4.9); Potassium 3.4 mmol/L (3.5-5.1)
[2018-10-03] MEDS: ALBUT/IPRATROP 3MG/0.5MG NEB 3 ML VIAL NEB SCH ×4 (07:05→19:24)
[2018-10-03] MEDS: CLOPIDOGREL BISULFATE 75 MG TAB PO SCH (08:08)
[2018-10-03] MEDS: VALSARTAN 80 MG TAB PO SCH (08:08)
[2018-10-03] MEDS: ALLOPURINOL 100 MG TAB PO SCH (08:09)
[2018-10-03] MEDS: MAGNESIUM OXIDE 400 MG TAB PO SCH (08:09)
[2018-10-03] MEDS: METOPROLOL TARTRATE 100 MG TAB PO SCH (08:09)
[2018-10-03] MEDS: POTASSIUM CHLORIDE 20 MEQ TABCR PO SCH (08:09)
[2018-10-03] MEDS: INSULIN ASPART 100 UNITS/ML 3 ML PEN SC SCH ×4 (08:11→20:54)
[2018-10-03] MEDS ORDERED: PHARMACY GLYCEMIC MGMT CONSULT PRN (08:16)
[2018-10-03] MEDS ORDERED: POT PHOSPHATE MONOBASIC W/ SOD TAB PO SCH (09:00)
[2018-10-03] MEDS ORDERED: INSULIN GLARGINE SOLOSTAR 100 UNITS/ML 3 ML PEN SC SCH (09:00)
[2018-10-03] MEDS ORDERED: NON-FORMULARY MEDICATION (Iron 1 TAB) PO SCH (09:00)
[2018-10-03] MEDS ORDERED: levETIRAcetam 500 MG TAB PO SCH (09:00)
[2018-10-03] MEDS ORDERED: cefTRIAXone SODIUM 1,000 MG in DEXTROSE 5% 50 ML IV SCH (10:00)
[2018-10-03 10:58] LABS: BUN Creatinine Ratio 26.3 (10-20); Creatinine Clr Calc Pharmacy 79.5 ml/min; Est GFR (African American) 105.2; Est GFR (Non-African American) 90.8; Potassium 3.7 mmol/L (3.5-5.1)
[2018-10-03 11:01] LABS: Phosphorus 2.7 mg/dl (2.5-4.9)
--- NOTE | 2018-10-03 11:15 | Neurology Consultation ---
Date of Consultation October 03, 2018 Assessment & Plan (1) Encephalopathy acute: Patient had acute confusion/encephalopathy prior to admission with poor balance and slurred speech Clinically she is doing very well with market improvements in all of these areas. She still has a little residual slowness and confusion but has no focal neurologic findings on exam or meningeal signs. She is afebrile. The etiology of the encephalopathy is likely related to significant hyperglycemia (glucose 141) as well as significant hypertension. She may have had some seizure activity/seizures explaining some of her mental status changes as well. MRI does not show obvious stroke except perhaps in the deep right frontal white matter in a tiny spot. The other changes on MRI are either old or not related to vascular events. Recent steroid use likely exacerbated the glucose and blood pressure. Mental status may take 48-72 hours to completely return back to normal following correction of her glucose and blood pressure (2) Seizure: Patient may have had some seizure activity but she certainly has been stable overnight. Severe hyperglycemia could trigger seizures. She has been given levetiracetam 500 mg each morning. (3) CVA (cerebrovascular accident): The patient does not have any evidence of stroke on exam. There is an equivocal upgoing toe on the right but there is considerable withdrawal. This would not correlate with any of her MRI findings otherwise. Severe Hyperglycemia and acute Hypertension can imitate focal neurologic deficits (such as creating an upgoing toe). She was put on clopidogrel. I do not believe she has had embolic phenomenon to the brain as I have reviewed this MRI with Dr. Hernández and we do not believe she has had multiple infarcts. Nevertheless, we are awaiting the echocardiogram results. (4) Hypertension: Patient has a longstanding history of hypertension which was quite elevated on admission. Today is much better. Recommendations: 1. Continue clopidogrel 75 mg daily. Apparently she cannot tolerate plain aspirin. There is no indication for anticoagulation at this time 2. Awaiting echocardiogram results. 3. Increase activity as able with physical, occupational, and speech therapy 4. Control blood pressure as you are doing aiming for a mean arterial pressure of 95-100. 5. Control glucose as you are doing, keeping less than 130 if possible. 6. Discontinue all steroid usage. 7. Discontinue levetiracetam. Now that her glucose is controlled she will not need an anticonvulsant. Overall, I spent a total of 110 minutes on this case including review of records, review of MRI films, direct evaluation the patient at bedside, and discussion of the case with the patient, clinical staff, Dr. Hernández in Radiology, and Dr. Voss including differential diagnosis and treatment options. History of Present Illness Reason for Consultation: Patient is a 58-year-old, was asked to see the request of Dr. Tidwell, for neurologic consultation regarding acute confusion and probable stroke Requesting Physician: Dr. Tidwell Attending Physician: Alvin Voss MD History of Present Illness Patient has a history of hypertension from for at least 10 years. She has no history of diabetes, heart disease, or stroke. The patient was doing well until last week when she started developing sinus infection issues and upper respiratory tract infection. On September 29, she went to urgent care and received a Z-Mikey and prednisone tapering course. She was diagnosed with an upper respiratory tract infection. She initiated both of those medications on September 30. On October 01 she was at work all day but colleagues reported that she was not acting herself and she has felt like she was in outer space On October 02 she went to work as usual and her was called by her supervisor soldering around 0930 to come get the patient because she was not acting right. She was slurring her words and her balance was poor, acting drunk. She had no alcohol. She was slow with her speech and action as well. She arrived to the emergency room October 02 at 1214 with a temperature of 36.6, pulse 101, blood pressure 195/104, and O2 saturation 97%. She had some confusion but was awake and alert and answering questions well. She had no focal signs on examination. There was a questionable left facial yuliana op noted. CBC was unremarkable. Sodium was 128 and glucose was 141. Magnesium was 2.6 and alk-phos 118. There is a mildly elevated BUN and creatinine. There was protein in her urine. CT scan of the head was unremarkable. CT angiography of the neck was unremarkable. CT angiography of the head showed a narrowing of the right proximal middle cerebral artery and high-grade stenosis of the right posterior cerebral artery. MRI of the brain reported multiple tiny white matter spots on diffusion imaging seemingly small embolic strokes including the left mike. I have reviewed this film with the radiologist and we are not certain that there are any active strokes except possibly 1 deep posterior right frontal spot. The rest seem older. The pontine lesion is not acute and does not represent an old stroke. It may be secondary to metabolic issues. She certainly has some small vessel ischemia. The patient has had no seizures overnight and no further issues. This morning her glucose was 138 and blood pressure 128/77. She has no complaints of pain or headache. She has fatigue and little dizzy with certain position changes but otherwise feels quite good. Her , was present in the room, feels she is a little slow and confused yet. Allergies Allergy/AdvReac Type Severity Reaction Status Date / Time aspirin AdvReac Unknown Unverified 10/02/18 14:13 Home Medications Home Medications Medication Instructions Recorded Confirmed Type allopurinol 100 mg PO DAILY 10/02/18 10/02/18 History azithromycin [Zithromax Z-Mikey] 0 mg PO DAILY 10/02/18 10/02/18 History furosemide 20 mg PO Q OTHER DAY 10/02/18 10/02/18 History iron 1 tab PO DAILY 10/02/18 10/02/18 History levothyroxine 50 mcg PO QAM 10/02/18 10/02/18 History magnesium 500 mg PO DAILY 10/02/18 10/02/18 History metoprolol tartrate 100 mg PO DAILY 10/02/18 10/02/18 History potassium chloride [Klor-Con M20] 4 tabs PO DAILY 10/02/18 10/02/18 History prednisone 0 mg PO .TAPER DOSE 10/02/18 10/02/18 History valsartan-hydrochlorothiazide 1 tab PO DAILY 10/02/18 10/02/18 History Patient History Medical History DVT prophylaxis Uncontrolled type 2 diabetes mellitus (Acute) CVA (cerebrovascular accident) (Acute) Acute bronchitis (Acute) Seizure (Acute) Hypertension (Chronic) H/O: hysterectomy Surgical History History of 2 sections S/P laparoscopic cholecystectomy Family History Mother , age 50 with an MRI Myocardial infarction Father , Her biologic father when she was 4 months old from some type of tumor. No problems noted. Social History Preferred Language: Ecuadorean Communication Ability: Effective Beliefs That Will Affect Care: None marital status: Current Living Situation: Spouse current occupational status: employed current occupation: Patient works at [email or web address] Other Information That Helps Us Care for You: No Feels Safe at Home: Yes Safety Concerns: Feels Safe At This Time Smoking Status: Former smoker Age Quit Using Tobacco: 19 Years Smoked: 2 Hx Alcohol Use: Yes Alcohol Intake Frequency Comment: She only rarely has a drink of alcohol perhaps once per month. Hx Substance Use: No Review of Systems Constitutional: + fatigue; no fever Eyes: no diplopia, no eye pain and no worsening vision Ear, Nose, Mouth, Throat: no ear pain, no tinnitus, no hearing loss and no dysphagia Respiratory: no cough and no dyspnea Cardiovascular: no chest pain, no dyspnea and no palpitations Gastrointestinal: no abdominal pain, no nausea and no vomiting Genitourinary: no dysuria, no urinary frequency and no urinary incontinence Musculoskeletal: no back pain, no neck pain, no radicular pain, no myalgia, no muscle weakness and no muscle atrophy Integumentary: no rash and no lesions Neurologic: + confusion; no gait abnormality, no falls, no localized weakness, no generalized weakness, no tingling, no numbness, no tremor(s), no abnormal movements, no dizziness, no headache(s), no abnormal speech, no behavioral changes and no memory loss Psychiatric: no depression, no abnormal sleep pattern, no anxiety, no difficulty concentrating, no confusion and no hallucinations Endocrine: + fatigue; no flushing Hematologic / Lymphatic: no easy bleeding and no easy bruising Allergy / Immunological: no urticaria Physical Exam Physical Exam: The patient is right-handed. The patient is awake, alert, and attentive. Speech is without any obvious aphasia but she does have some subtle dysarthria (very mild). Mentation and thought processes are very good with conversation, with full orientation and normal fund of knowledge. Attention and concentration are normal. Mood and affect are normal and appropriate. General appearance and grooming are normal. She has some memory deficits particularly with recent events but otherwise is fairly good snf. She is a little bit slow to respond both verbally and reacting physically. The discs are sharp with positive venous pulsations bilaterally. There are no exudates, hemorrhages, or blood vessel changes seen. Pupils are 4 mm bilaterally and reactive to light. Extraocular eye muscles are intact without nystagmus. Visual acuity and visual rios seem normal grossly to confrontation. There are no deficits to sensation in the face in all 3 distributions of the fifth cranial nerve bilaterally. Corneal reflexes are positive bilaterally. Facial strength and symmetry was normal bilaterally. Hearing seems intact grossly to voice and finger rub bilaterally. Palate moves well without asymmetry. There is normal sternocleidomastoid and trapezius (shoulder shrug) strength bilaterally. Tongue is midline with good strength bilaterally. Neck has a full range of motion without discomfort. There are no cervical bruits bilaterally. There are no cranial or ocular bruits. Heart is without murmur. There is a regular rhythm and rate. Cervical, thoracic, and lumbar spine are nontender to palpation. Gait is narrow based and her stance is stable eyes open or closed. With outstretched arms there is no drift. There are no resting, postural, or action tremors. There is no ataxia with finger to nose testing. There is good facility in the hands. No other abnormal involuntary movements are noted. Motor strength is 5/5 diffusely in the arms bilaterally including deltoids, biceps, triceps, brachioradialis, wrist flexors and extensors, robotics technician, and intrinsic hand muscles. Motor strength is 5/5 diffusely in the legs bilaterally including hip flexors, quadriceps, hamstrings, gastrocnemius, tibialis anterior, tibialis posterior, and Peroneii muscles bilaterally. Toe extensors are normal and there is good bulk in the extensor digitorum brevis muscles bilaterally. The limbs have good tone without rigidity or spasticity. There is no atrophy noted in the muscles. Muscle bulk is normal, there is no tenderness to palpation, no myotonia to percussion, and no fasciculations seen. Sensory examination is intact to touch and pin throughout all 4 limbs diffusely. Vibratory and position sense testing is normal bilaterally as well. There is normal sensation to temperature. Reflexes are 2/4 in the biceps, triceps, brachioradialis, quadriceps, and Achilles tendons bilaterally. Toes are downgoing with plantar stimulation on the right and equivocal to upgoing on the left. She has considerable withdrawal bilaterally. Peripheral pulses are present and of normal quality distally in all 4 limbs. There is no peripheral edema noted in the limbs. Results & Data Vital Signs (Past 12 Hours) Vital Signs Temp Pulse Pulse Resp BP Pulse Ox 10/03/18 07:22 36.5 C 90 18 128/77 90 10/03/18 07:06 36.6 C 74 18 124/69 92 10/03/18 06:18 68 05/15/19 04:00 36.7 C 76 18 115/71 92 10/02/18 23:25 85 10/02/18 23:10 36.8 C 84 19 105/65 93 Diagnostic Findings [place], [place] [phone] Magnetic Resonance Report Patient: Jan REICH Date: 10/02/18 MR#: [id number]: [address] Acct ID:[id number]: [facility] Zip[facility] [place] [address] Age: 57Location: 2S Sex: F Room/Bed: [facility] Att Phy: Carlos Tidwell MDDiagnosis: AMS Sheeba Phy: Luz Maria Mabry MDService Date: 10/02/18 Fam Phy: Interpreting Phy: Bhargav Moya MD Admit Phy: Carlos Tidwell MD Ordering Phy: Carlos Tidwell MD cc: ~ MR brain wo/w con CLINICAL HISTORY: Altered mental status, possible CVA COMPARISON STUDY: No previous studies for comparison. TECHNIQUE: Utilizing a 1.5 Mireya magnet and dedicated coil, multiplanar, multiecho imaging of the brain was performed pre and postcontrast administration. IV administration of 7 mL of Gadavist contrast was uneventful. FINDINGS: Feeding images demonstrate several small foci of increased signal within the periventricular regions. This suggestive of small embolic infarcts. There is a small linear focus of increased signal on diffusion involving the left central mike. This is also seen on the T2 images suggesting a subacute process. The ventricular system is midline. There is no evidence for abnormal postcontrast enhancement. IMPRESSION: 1. Small punctate infarcts of the right and to a lesser extent left cerebral distributions. 2. Subacute infarct left central mike. 3. Multiplicity of small punctate findings suggest possibility of small embolic foci of acute ischemic change. 4. No abnormal postcontrast enhancement. The above report was generated using voice recognition software. It may contain grammatical, syntax or spelling errors. Electronically signed by: Bhargav Moya M.D. 10/02/2018 10:17 PM (1) CVA (cerebrovascular accident) CVA mechanism: unspecified Qualified Code(s): I63.9 - Cerebral infarction, unspecified
[2018-10-03] MEDS ORDERED: INSULIN GLARGINE SOLOSTAR 100 UNITS/ML 3 ML PEN SC ONE ×2 (12:45→21:00)
--- NOTE | 2018-10-03 12:49 | Pharmacy Report ---
Glycemic Control Consultation - Date of Service October 03, 2018 - Scope Scope: Glycemic Pharmacist consulted by Dr Tidwell on 10/02/18 for glycemic control and to write orders per [facility] inpatient glycemic control protocol - Objective Weight: 81.7 kg Accuchecks BSG (last 24hrs): 10/02/18 10/02/18 10/02/18 12:28 12:30 12:59 Glucose 841 H* POC Glucose > 600 H* POC Glucose (other) > 700 H* 10/02/18 10/02/18 10/02/18 14:53 15:57 16:14 Glucose 371 H* POC Glucose > 600 H* 476 H* POC Glucose (other) 10/02/18 10/02/18 10/02/18 17:06 18:02 19:19 Glucose POC Glucose 408 H* 396 H* 391 H* POC Glucose (other) 10/02/18 10/02/18 10/02/18 20:06 20:23 21:02 Glucose 392 H* POC Glucose 426 H* 382 H* POC Glucose (other) 10/02/18 10/02/18 10/03/18 22:04 23:05 00:02 Glucose 270 H POC Glucose 338 H* 326 H* POC Glucose (other) 10/03/18 10/03/18 10/03/18 00:14 01:06 01:47 Glucose 187 H POC Glucose 261 H 225 H POC Glucose (other) 10/03/18 10/03/18 10/03/18 01:53 03:04 03:23 Glucose POC Glucose 185 H 135 H 127 H POC Glucose (other) 10/03/18 10/03/18 10/03/18 03:36 03:54 04:12 Glucose POC Glucose 119 H 115 H 129 H POC Glucose (other) 10/03/18 10/03/18 10/03/18 06:02 07:19 10:28 Glucose 138 H 280 H POC Glucose 166 H POC Glucose (other) 10/03/18 11:34 Glucose POC Glucose 281 H POC Glucose (other) Laboratory Data (last 24hrs): 10/02/18 10/02/18 10/02/18 12:28 16:14 20:23 Potassium 4.1 3.7 3.4 L Carbon Dioxide 29 30 26 Anion Gap 9.0 8.0 10.0 Creatinine 1.33 H 1.19 0.84 D Est Cr Clr Drug Dosing 46.8 46.9 66.5 Beta-Hydroxybutyric Acd 1.48 25.92 H 10/03/18 10/03/18 10/03/18 00:02 01:47 06:02 Potassium 3.7 3.6 3.4 L Carbon Dioxide 28 30 27 Anion Gap 5.0 4.0 5.0 Creatinine 0.87 0.74 0.62 Est Cr Clr Drug Dosing 63.4 74.5 93.7 Beta-Hydroxybutyric Acd 10/03/18 10:28 Potassium 3.7 Carbon Dioxide 28 Anion Gap 5.0 Creatinine 0.73 Est Cr Clr Drug Dosing 79.5 Beta-Hydroxybutyric Acd HbA1c: 13.7 % (4.5-5.6) H 10/02/18 18:43 - Recent Pertinent Medications Outpatient Anti-diabetic Regimen: * None * A1c = 13.5 % 10/02/18 Risk Factors for Insulin Resistance: * Steroids: Prednisone 60mg PO SAMPLE SUPERVISOR on 10/02 * Infection: Rocephin 1g IV daily * IVF: NS+20K on hold * Diet: Type 1 DM - Assessment & Plan Assessment & Plan: ASSESSMENT: * 58 year old female admitted for acute encephalopathy and hyperglycemia, A1c 13.5% - pt not on any anti DM medications as outpatient * Patient initiated on insulin drip yesterday, and transitioned to basal bolus last night * Patient had Lantus 18 units x1 last night, then 15 units this morning, will give additional dose now at lunch for elevated BSG * Neurology would like patient's blood sugar goal to be 130mg/dl * Will also tighten CF and CR at this time for elevation in blood sugar from breakfast to lunch, 166mg/dl --> 280mg/dl PLAN FOR INPATIENT GLYCEMIC CONTROL: * Basal insulin * Lantus 10 units SQ x1 dose now then * Lantus 7 units tonight for BSG > 140mg/dl * Then Lantus 30 units SQ Daily starting tomorrow * Bolus insulin * NovoLog per scale ACHS or Q6hrs while NPO * Goal Range: Low 110 mg/dL - High 140 mg/dL * Correction Factor: 20 mg/dL/unit * Nutritional / Prandial insulin per carb ratio of 1 unit per 7 grams CHO consumed * Please note that the plan above was derived based on current level of insulin resistance and hospital stress. These recommendations are appropriate for inpatient admission only. Plan of care upon discharge will need to be reassessed to avoid potential outpatient hypo/hyperglycemia. Thank you.
--- NOTE | 2018-10-03 13:01 | Hospitalist Progress Note ---
Date of Service October 03, 2018 Assessment & Plan (1) Uncontrolled type 2 diabetes mellitus: Glucose greater than 800 on admission. DM type II with nonketotic hyperglycemic-hyperosmolar State (NKHHS). A1c was 13.7%. - Initially she received intravenous fluids and insulin infusion. - Glycemic consult helping manage blood sugars - Glycemic instructor (2) CVA (cerebrovascular accident): Brain MRI on 10/02 showed multiple punctate lesions. Initially concerning for embolic event; however, on re-read it was felt it was mostly old, microvascular lesions with one possible mild infarct. - Continue Plavix per neurology - Held ASA as she has not tolerated it in the past - Follow up echo for possible embolic cause (3) Seizure: Some question of focal motor seizure. Seen by neurology who felt this could potentially be due to her hyperglycemia. - She was loaded with Keppra and started oral Keppra; however, this was stopped on 10/03 per neurology. - Monitor (4) Acute bronchitis: Likely tipping point of her hyperglycemia was steroid administration. Initially on ceftriaxone. - Ceftriaxone switched on 10/03 to doxycycline - Continue nebulizer treatments. - Obtain sputum culture if sputum is produced (5) Hypertension: BP presently 135/75. - Diuretics are on hold. - Continue valsartan and metoprolol. (6) DVT prophylaxis: Lovenox Subjective Feels better this morning. Still with nasal congestion, but otherwise mostly feels well. Review of Systems Review of Systems: All systems reviewed & are unremarkable except as noted in HPI & below Constitutional: + fatigue and + weakness; no fever Ear, Nose, Mouth, Throat: + dry mouth Respiratory: + cough; no dyspnea and no hemoptysis Physical Exam Constitutional: + obese Eyes: PERRL, conjunctivae normal, anicteric sclerae ENMT: external ear and nose normal, oropharynx normal Mouth: + oral mucosal abnormality Neck: trachea midline, no thyromegaly Respiratory: normal respiratory effort; no respiratory distress, no labored breathing and no retractions Cardiovascular: RRR, no murmur, no edema Gastrointestinal (Abdomen): normal bowel sounds, soft, nontender, no hepatosplenomegaly Musculoskeletal: no cyanosis or clubbing, extremities motor strength 5/5 Skin: no rashes, warm and dry Neurologic: CN's II-XI intact bilaterally and moves all extremities; no focal motor deficits Results & Data Vital Signs (Past 12 Hours) Vital Signs Temp Pulse Pulse Resp BP Pulse Ox 10/03/18 11:51 36.4 C L 79 18 133/74 96 10/03/18 11:18 82 18 91 10/03/18 07:22 36.5 C 90 18 128/77 90 10/03/18 07:06 36.6 C 74 18 124/69 92 10/03/18 06:18 68 10/03/18 04:00 36.7 C 76 18 115/71 92 (1) Acute bronchitis Bronchitis organism: unspecified organism Qualified Code(s): J20.9 - Acute bronchitis, unspecified (2) CVA (cerebrovascular accident) CVA mechanism: unspecified Qualified Code(s): I63.9 - Cerebral infarction, unspecified
[2018-10-03] MEDS: SODIUM CHLORIDE 0.65% NA SOLN 45 ML (OCEAN) SCH ×3 (14:12→20:50)
[2018-10-03] MEDS: ENOXAPARIN INJ 40 MG/0.4 ML SYR SQ SCH (18:18)
[2018-10-03] MEDS: DOXYCYCLINE HYCLATE 100 MG CAP PO SCH (18:19)
[2018-10-03] MEDS: FLUTICASONE PROPIONATE NA SPR 16 GM BTL SCH (20:50)
[2018-10-04] MEDS: SODIUM CHLORIDE 0.65% NA SOLN 45 ML (OCEAN) SCH ×4 (03:16→12:17)
[2018-10-04] MEDS: DOXYCYCLINE HYCLATE 100 MG CAP PO SCH (05:22)
[2018-10-04] MEDS: LEVOTHYROXINE SODIUM 50 MCG TABLET PO SCH (05:22)
[2018-10-04 06:36] LABS: Basophils # (auto) 0.01 K/uL (0-0.2); Basophils % (auto) 0.1 %; Eosinophils # (auto) 0.05 K/uL (0-0.5); Eosinophils % (auto) 0.5 %; Hematocrit (blood only) 36.5 % (37-47); Hemoglobin 12.9 g/dL (12.0-16.0); Immature Granulocytes # (auto) 0.08 K/uL (0.00-0.02); Immature Granulocytes % (auto) 0.8 %; Lymphocytes # (auto) 3.92 K/uL (1.2-3.4); Lymphocytes % (auto) 41.3 %; Mean Corpuscular Hgb Conc 35.3 g/dL (32-36); Mean Corpuscular Volume 85.7 fL (80-100); Mean Platelet Volume 11.7 fL (7.4-10.4); Monocytes # (auto) 0.38 K/uL (0.11-0.59); Neutrophils # (auto) 5.05 K/uL (1.4-6.5); Neutrophils % (auto) 53.3 %; Platelet Count 191 K/uL (130-400); RDW Coefficient of Variation 12.8 % (11.5-14.5); RDW Standard Deviation 40.1 fL (36.4-46.3); Red Blood Count 4.26 M/uL (4.2-5.4); White Blood Count 9.49 K/uL (4.8-10.8)
[2018-10-04] MEDS: ALBUT/IPRATROP 3MG/0.5MG NEB 3 ML VIAL NEB SCH ×3 (06:55→15:29)
[2018-10-04 07:07] LABS: BUN Creatinine Ratio 24.4 (10-20); Calcium 8.1 mg/dl (8.5-10.1); Creatinine Clr Calc Pharmacy 118.2 ml/min; Est GFR (African American) 124.5; Est GFR (Non-African American) 107.4; Potassium 3.1 mmol/L (3.5-5.1)
[2018-10-04] MEDS ORDERED: POTASSIUM CHLORIDE PWD 20 MEQ PACK PO STA (07:42)
[2018-10-04] MEDS: INSULIN ASPART 100 UNITS/ML 3 ML PEN SC SCH ×2 (08:59→12:13)
[2018-10-04] MEDS ORDERED: INSULIN GLARGINE SOLOSTAR 100 UNITS/ML 3 ML PEN SC SCH (09:00)
[2018-10-04] MEDS: FLUTICASONE PROPIONATE NA SPR 16 GM BTL SCH (09:02)
[2018-10-04] MEDS: MAGNESIUM OXIDE 400 MG TAB PO SCH (09:04)
[2018-10-04] MEDS: VALSARTAN 80 MG TAB PO SCH (09:04)
[2018-10-04] MEDS: ALLOPURINOL 100 MG TAB PO SCH (09:04)
[2018-10-04] MEDS: CLOPIDOGREL BISULFATE 75 MG TAB PO SCH (09:04)
[2018-10-04] MEDS: METOPROLOL TARTRATE 100 MG TAB PO SCH (09:05)
--- NOTE | 2018-10-04 10:18 | Neurology Progress Note ---
Date of Service October 04, 2018 Assessment & Plan (1) Encephalopathy acute: Patient had acute confusion/encephalopathy October 02 prior to admission with poor balance and slurred speech Clinically today, she is doing very well with market improvements and no speech issues or focal neurologic findings on exam. She does not have the slowness/confusion today that she had yesterday. She is afebrile. The etiology of the encephalopathy was likely related to significant hyperglycemia (glucose 841) and hypertension. Recent steroid use likely exacerbated the glucose and blood pressure. She may have had some seizure activity/seizures prior to admission, explaining some of her mental status changes as well. MRI did not show obvious stroke, except perhaps in the deep right frontal white matter in a tiny spot. The other changes on MRI are either old or not related to vascular events. (2) Seizure: Patient may have had some seizure activity but she certainly has been stable since admission. Severe hyperglycemia could trigger seizures. She had been given levetiracetam. (3) CVA (cerebrovascular accident): The patient does not have any evidence of stroke on exam. There was an equivocal upgoing toe on the right yesterday but this is not present today. Severe Hyperglycemia and acute Hypertension can imitate focal neurologic deficits. She was put on clopidogrel. I do not believe she has had embolic phenomenon to the brain as I have reviewed this MRI with Dr. Hernández and we do not believe she has had multiple infarcts. Echocardiogram was unremarkable. (4) Hypertension: Patient has a longstanding history of hypertension which was quite elevated on admission. Today is much better and her blood pressure has been stable. Recommendations: 1. Continue clopidogrel 75 mg daily. Apparently she cannot tolerate plain aspirin. There is no indication for anticoagulation at this time 2. Increase activity as able 3. Control blood pressure as you are doing aiming for a mean arterial pressure of 95-100. 4. Control glucose as you are doing, keeping less than 120. 5. Discontinue all steroid usage. 6. Keep off levetiracetam. Now that her glucose is controlled she will not need an anticonvulsant. Overall, I spent a total of 25 minutes minutes on this case including review of records, direct evaluation the patient at bedside, and discussion of the case with the patient, clinical staff, and Dr. Voss including differential diagnosis and treatment options. Subjective Feels better today. She has no pain or headache, dizziness, vision problems, weakness or numbness. She does feel congested nasally and has had some sinus issues. Blood pressure is 139/81. CBC is unremarkable. Chem profile was unremarkable and her sodium was 142 and glucose 70. Nursing reports no unusual events or issues overnight or this morning. Echocardiogram was performed and was unremarkable with no shunt or source of embolus. Physical Exam Physical Exam: She is awake and alert. Speech is without aphasia or dysarthria. Mood and affect seem normal appropriate. She has good conversation memory. Extraocular eye muscles are intact without nystagmus. There is no facial droop. With outstretched arms there is no drift. There is no resting postural or action tremor and no ataxia with [id number] testing. Strength is symmetrical. Toe seem downgoing to plantar stimulation bilaterally. Results & Data Vital Signs (Past 12 Hours) Vital Signs Temp Pulse Pulse Pulse Resp BP BP 10/04/18 07:29 36.6 C 82 17 139/81 10/04/18 06:56 76 18 10/04/18 06:20 75 10/04/18 03:10 36.4 C L 72 17 126/79 10/03/18 23:19 36.5 C 77 16 111/69 Pulse Ox 10/04/18 07:29 92 10/04/18 06:56 95 10/04/18 06:20 10/04/18 03:10 92 10/03/18 23:19 92 (1) CVA (cerebrovascular accident) CVA mechanism: unspecified Qualified Code(s): I63.9 - Cerebral infarction, unspecified
--- NOTE | 2018-10-04 10:28 | Pharmacy Report ---
Pharmacy Glycemic Short Note 2 - Date of Service October 04, 2018 - Glycemic Short BSG Results (Last 24 hours): 10/03/18 10/03/18 10/03/18 10:28 11:34 16:30 Glucose 280 H POC Glucose 281 H 235 H 10/03/18 10/03/18 10/04/18 16:31 20:49 05:57 Glucose 70 POC Glucose 224 H 181 H 10/04/18 07:33 Glucose POC Glucose 167 H OUTPATIENT ANTIDIABETIC REGIMEN: * Nil: she is a new diagnosis ASSESSMENT: * I met with pt and bedside this AM. PO intake improved, glycemic status also much improved. BSGs over the previous 24hrs: [id number]/dL. She required 64 units of insulin yesterday. Roughly 50/50 split bt basal/bolus. PLAN FOR INPATIENT GLYCEMIC CONTROL: * Hold outpatient oral diabetes medications * Basal insulin * Lantus 30 units this AM * Bolus insulin * NovoLog per scale ACHS or Q6hrs while NPO * Goal Range: Low 110 mg/dL - High 140 mg/dL * Correction Factor: 20 mg/dL/unit * Nutritional / Prandial insulin per carb ratio of 1 unit per 6 grams CHO consumed PLAN FOR DISCHARGE: * ASCVD score of 8.9% with new onset diabetes: she would certainly benefit from a moderate-high intensity statin (despite her lipid panel looking OK): Rosuvastatin 20mg HS * New onset DM-II: Lantus 25-30 units QAM, Metformin 500mg XR with evening meal (further titration per outpt provider), Ozempic 0.25mg SQ weekly (for the proven CV benefits) * Stage I HTN: ARB appropriate to help delay progression to albuminuria
--- NOTE | 2018-10-04 18:52 | Discharge Summary ---
Date of Service October 04, 2018 Admission HPI Per Admitting Provider 57-year-old female recently treated with azithromycin and prednisone for a bronchitis episode. She had altered mental status today at work and was sent to the ED for evaluation. She was found to have glucose greater than 800 but no overt DKA. She has pseudohyponatremia as expected. Tele-neurology evaluated the patient and she was given Plavix. She was also loaded with intravenous Keppra for possible new onset seizure that may have been focal. Head CT scan is unremarkable. Head CTA however reveals right posterior cerebral artery stenosis or occlusion. Brain MRI is pending. Neurology has been consulted. She is now on an insulin infusion. She has received Rocephin also in the ED. Diuretics have been discontinued. She was loaded with Plavix. She is admitted for further evaluation and treatment Principal Diagnosis Hyperglycemia - Possibly causing seizure Discharge Exam Constitutional + obese Eyes PERRL, conjunctivae normal, anicteric sclerae ENMT external ear and nose normal, oropharynx normal Mouth: + oral mucosal abnormality Neck trachea midline, no thyromegaly Respiratory normal respiratory effort; no respiratory distress, no labored breathing and no retractions Cardiovascular RRR, no murmur, no edema Gastrointestinal (Abdomen) normal bowel sounds, soft, nontender, no hepatosplenomegaly Musculoskeletal no cyanosis or clubbing, extremities motor strength 5/5 Skin no rashes, warm and dry Neurologic CN's II-XI intact bilaterally and moves all extremities; no focal motor deficits Discharge Data Allergies Allergy/AdvReac Type Severity Reaction Status Date / Time aspirin AdvReac Unknown Unverified 10/02/18 14:13 Consultations 10/02/18 17:28 Consult Case Management - Discharge Planning Routine Consult Neurology Routine Consult Neurology Routine Ordered Studies 10/02/18 12:07 CT head/brain wo con Stat 10/02/18 12:17 CT angio head w con Stat CT angio neck with con Stat 10/02/18 17:28 MR brain wo/w con Routine Hospital Course (1) Uncontrolled type 2 diabetes mellitus: Glucose greater than 800 on admission. DM type II with nonketotic hyperglycemic-hyperosmolar State (NKHHS). A1c was 13.7%. - Initially she received intravenous fluids and insulin infusion. - Transitioned to basal-bolus insulin - On discharge, sent out with Lantus 25 units QAM, metformin 500 mg PO BID. - Pharmacist recommended Ozempic 0.25mg SQ weekly (for the proven CV benefits); however, this was too much for the patient, and she wanted time to adjust to insulin regimen. - Atorvastatin started for cardiac protection (2) CVA (cerebrovascular accident): Brain MRI on 10/02 showed multiple punctate lesions. Initially concerning for embolic event; however, on re-read it was felt it was mostly old, microvascular lesions with one possible mild infarct. Echo on 10/03 had EF of 55-60%, no vegetations or valvular issues, and no FPO. - Discharged off ASA or Plavix as she reported intolerance to ASA. Plavix is a possibility; however, without a clear CVA its indication was questioned. Could re-trial ASA as an outpatient. (3) Seizure: Some question of focal motor seizure. Seen by neurology who felt this could potentially be due to her hyperglycemia. - She was loaded with Keppra and started oral Keppra; however, this was stopped on 10/03 per neurology. - No further seizure activity inpatient. Discharged off any anti-epileptic medication. (4) Acute bronchitis: Likely tipping point of her hyperglycemia was steroid administration. Initially on ceftriaxone. - Ceftriaxone switched on 10/03 to doxycycline - Continued nebulizer treatments. - Discharged with instructions for OTC nasal treatments. No concern for bacterial sinusitis or pneumonia on discharge. Likely viral- or allergy-related nasal congestion. (5) Hypertension: BP was well-controlled inpatient. Usually 130/80-135/75. - Diuretics were hold. - Continued valsartan and metoprolol. - On discharge, stopped her combo DioVan pill and just started valsartan. (6) DVT prophylaxis: Lovenox Total Time Total Time Spent Total Time Spent (In Minutes): 40 Discharge Plan Discharge Items Patient Disposition: Home - Self-Care Reason For Visit: AMS Discharge Diagnosis: Diabetes with hyperglycemia and possible seizure Discharge Goals: Decrease discomfort, Diagnostic testing and Improve disease control Activity: Resume your previous activity Non-emergency contact: Primary Care Provider Call non-emergency contact if: you have any medication questions, your symptoms worsen and your pain is not controlled Follow-up/Referrals: Abelardo Ordonez PA-C [Physician Material Requisitioner] - 02/25/19 10:45 am (Please, follow up at [facility]ology Office with Abelardo Ordonez PA-C on MondayFebruary 25 at 10:45 am. *The office is located in [address] of [facility]. This is the big building located next to the hospital. If you need to change this appointment, call the office at [phone].) Luz Maria Mabry MD [Primary Care Provider] - 10/08/18 12:40 pm (Please, follow up with Dr. Mabry on MondayOctober 08 at 12:40 pm. *If you need to change this appointment, call the office at [phone].) Diet: Carb Consistent or DM2 Addtl Provider Instructions: Ms. Billingsley, you were admitted to the hospital with high blood sugars that caused a seizure and dehydration. We gave you insulin which helped bring your blood sugars down to safer levels. Your blood sugars is still high, but it will take a few days & weeks of working with your PCP to get them under ideal control. Your medication changes are: 1) Added Lantus insulin 25 units every day 2) Added metformin two times per day 3) Added atorvastatin which is a cholesterol medication which will help prevent heart attacks and strokes 4) Stopped your "Diovan" combination pill and replaced it with just one of the medications (valsartan) 5) Lower your potassium from 4 pills to 2 pills as you will lose less potassium with the change in your blood pressure medication Please take the insulin (Lantus) once per day at about the same time of day. Check your blood sugar in the morning before breakfast and at least one other time per day. Write these down in a log book to take to your PCP's office. If you feel shaky or jittery, check your blood sugar right away as this can be a sign of low blood sugar. Please have a low threshold to call your PCP, including if your blood sugars s tart to run low (less than 70) or start climbing higher (greater than 200). Prescriptions: New Lantus Solostar U-100 Insulin 100 unit/mL (3 mL) insulin pen 25 units SQ DAILY Qty: 15 RF: 0 metformin 500 mg tablet extended release 24 hr 500 mg PO BID Qty: 60 RF: 0 valsartan 160 mg tablet 160 mg PO DAILY Qty: 30 RF: 0 atorvastatin 20 mg tablet 20 mg PO HS Qty: 30 RF: 0 Continued metoprolol tartrate 100 mg Tablet 100 mg PO DAILY RF: 0 allopurinol 100 mg Tablet 100 mg PO DAILY RF: 0 levothyroxine 50 mcg Tablet 50 mcg PO QAM RF: 0 magnesium 250 mg Tablet 500 mg PO DAILY RF: 0 furosemide 20 mg Tablet 20 mg PO Q OTHER DAY RF: 0 iron 1 tab PO DAILY RF: 0 Changed potassium chloride [Klor-Con M20] 20 mEq Tablet,Er Particles/Crystals 2 tabs PO DAILY Qty: 0 RF: 0 Discontinued valsartan-hydrochlorothiazide 160-12.5 mg Tablet 1 tab PO DAILY RF: 0 azithromycin [Zithromax Z-Mikey] 250 mg Tablet PO DAILY RF: 0 prednisone 20 mg Tablet PO .TAPER DOSE RF: 0 Stand-Alone Forms: [facility], Work/School Release (Inpt) Discharge Orders: Discharge Order (Routine); Ordered 10/04/18 Ordered By: Alvin Voss Admission Data Admit Date/Time: 10/02/18 15:39 Attending Provider: Alvin Voss Admit Provider: Carlos Tidwell Primary Care Provider: Luz Maria Mabry Other Providers: Dorian Menjivar ; David Olivier III ; Vane Neil ; Suma Jean ; Rogelio Hood Service: Telemetry Other Interventions: Discharge Summary Assessment (RN) Last Done: 10/04/18 16:03 DC Date/Time DO NOT enter until pt leaves facility: 10/04/18 17:36
[2018-10-04] MEDS ORDERED: INSULIN GLARGINE SOLOSTAR 100 UNITS/ML 3 ML PEN SC ONE (21:00)
--- NOTE | 2018-10-08 11:26 | Coding Query ---
To promote full compliance with coding requirements relating to patient care, provider participation is requested in all cases of senior digital designer uncertainty. Please assist us with the question(s) below: Coding Question: The diagnosis below was documented in the progress notes/consults but there is conflicting information. Please indicate if it is still a possible diagnosis or ruled out. Thank you so much for your help on this! Have a great day! CVA ( ) Diagnosed and POA ( ) Diagnosed and not POA ( x ) Ruled out ( ) Other (please specify) MTDD
== END 2018-10-04 17:36 | disposition home or self-care (01) | DRG 638 ==
LOC: ED 12:14 → 2S 15:39 → SUATTDRO 15:39 → 2S 17:11